=== PATIENT | male | born 1960 | race Caucasian/White ===

== ENCOUNTER → 2017-05-01 | Outpatient (CLI) | payer BC ==
[2017-05-01 09:56] LABS: Urine RBC None Seen /hpf (0 - 3)
[2017-05-01 10:18] LABS: Basophils # (auto) 0 uL; Basophils % (auto) 0.4 % (0.0-2.0); CONDITION Y; Eosinophils # (auto) 0.3 uL; Eosinophils % (auto) 2.8 % (0.0-7.0); Hematocrit 41.6 % (41.0-53.0); Hemoglobin 14.5 g/dL (13.5-17.5); Lymphocytes # (auto) 3.3 uL; Lymphocytes % (auto) 29.4 % (10.0-50.0); Mean Corpuscular Hemoglobin 30.2 pg (28.0-32.0); Mean Corpuscular Hgb Conc. 34.8 g/dL (32.0-36.0); Mean Corpuscular Volume 86.6 fL (80.0-100.0); Mean Platelet Volume 9.3 fL (7.4-10.4); Monocytes # (auto) 0.7 uL; Monocytes % (auto) 5.9 % (0.0-12.0); Neutrophils # (auto) 6.9 uL; Neutrophils % (auto) 61.5 % (37.0-80.0); Platelet Count (auto) 350 10^3/uL (140-450); Red Cell Distribution Width 14.4 % (11.6-16.0); White Blood Cell 11.3 10^3/uL (4.4-10.8)
[2017-05-01 10:25] LABS: Urine Bilirubin Negative (Negative); Urine Blood Negative /uL (Negative); Urine Color Yellow (Yellow); Urine Glucose Normal (Normal); Urine Ketone Negative (Negative); Urine Nitrite Negative (Negative); Urine Urobilinogen Normal (Negative)
[2017-05-01 10:33] LABS: Albumin 3.5 g/dL (3.4-5.0); BUN/Creatinine Ratio 28.7; Bilirubin, Total 0.3 mg/dL (0.2-1.0); Calcium 8.4 mg/dL (8.5-10.1); Potassium 3.8 mmol/L (3.5-5.1); Total Protein 7.2 g/dL (6.4-8.2)
== END | disposition home or self-care (01) ==
LOC: LAB 09:22
PROVIDERS: ATTEND Internal Medicine
DX: Z00.00 Encounter for general adult medical examination without abnormal findings (principal); E11.9 Type 2 diabetes mellitus without complications; I10 Essential (primary) hypertension; E55.9 Vitamin D deficiency, unspecified
CPT/HCPCS: 36415; 80053; 80061; 81001; 82043; 82306; 83036; 84443; 85025

== ENCOUNTER → 2017-07-25 | Outpatient (CLI) | payer BC ==
[2017-07-25 11:42] LABS: BUN/Creatinine Ratio 23.7; Calcium 9.1 mg/dL (8.5-10.1)
== END | disposition home or self-care (01) ==
LOC: LAB 10:07
PROVIDERS: ATTEND Internal Medicine
DX: E11.65 Type 2 diabetes mellitus with hyperglycemia (principal); E78.2 Mixed hyperlipidemia; E66.01 Morbid (severe) obesity due to excess calories
CPT/HCPCS: 36415; 80048; 83036; 84443

== ENCOUNTER 2019-07-03 14:47 | Emergency (ER) | payer BC, MEDICARE ==
[~2019-07-03] VITALS: Ht 170.2 cm; Wt 86.2 kg
[2019-07-03 15:39] LABS: Basophils # (auto) 0.1 uL; Basophils % (auto) 1.4 % (0.0-2.0); Eosinophils # (auto) 0.1 uL; Eosinophils % (auto) 1.5 % (0.0-7.0); Hematocrit 45.3 % (41.0-53.0); Hemoglobin 15.4 g/dL (13.5-17.5); Lymphocytes # (auto) 2.3 uL; Lymphocytes % (auto) 25.1 % (10.0-50.0); Mean Corpuscular Hemoglobin 32.3 pg (28.0-32.0); Mean Corpuscular Hgb Conc. 34.1 g/dL (32.0-36.0); Mean Corpuscular Volume 94.9 fL (80.0-100.0); Monocytes # (auto) 0.9 uL; Monocytes % (auto) 9.4 % (0.0-12.0); Neutrophils # (auto) 5.8 uL; Neutrophils % (auto) 62.6 % (37.0-80.0); Nucleated Red Blood Cells % 0.1 %; Platelet Count (auto) 313 10^3/uL (140-450); Red Blood Cells 4.77 10^6/uL (4.5-5.90); Red Cell Distribution Width 13.8 % (11.8-14.3); White Blood Cell 9.2 10^3/uL (4.4-10.8)
[2019-07-03 15:52] LABS: Acetaminophen < 2.0 ug/mL (10-30); Alanine Aminotransferase 67 U/L (16-61); Albumin 4.1 g/dL (3.4-5.0); Anion Gap 7 (5-15); Blood Alcohol < 3.0 mg/dL (0-5); Blood Urea Nitrogen 28 mg/dL (7-18); Calcium 8.9 mg/dL (8.5-10.1); Carbon Dioxide 28 mmol/L (21-32); Chloride 106 mmol/L (98-107); Glucose 114 mg/dL (74-106); Potassium 4.8 mmol/L (3.5-5.1); Salicylate < 1.7 mg/dL (2.8-20.0); Sodium 141 mmol/L (136-145)
[2019-07-03 15:55] LABS: Alkaline Phosphatase 93 U/L (45-117); Aspartate Aminotransferase 40 U/L (15-37); BUN/Creatinine Ratio 27.5; Bilirubin, Total 1.1 mg/dL (0.2-1.0); GFR African American 97 mL/min; GFR Non-African American 80 mL/min; Total Protein 7.3 g/dL (6.4-8.2)
[2019-07-03 16:00] VITALS: BP 154/86
[2019-07-03 16:00] LABS: Urine Bacteria NONE SEEN /hpf (None Seen); Urine Blood Negative /uL (Negative); Urine Mucus FEW (None Seen); Urine Specific Gravity 1.033 (1.001-1.035); Urine WBC 2 /hpf (0 - 3)
[2019-07-03 16:08] LABS: Alcohol, Urine < 3.0 mg/dL (0-5); Amphetamine Screen, Urine NEGATIVE (NEGATIVE); Barbiturate Scree,Urine NEGATIVE (NEGATIVE); Benzodiazephine Screen, Urine NEGATIVE (NEGATIVE); Cocaine Screen, Urine NEGATIVE (NEGATIVE); Opiate Scree,Urine NEGATIVE (NEGATIVE); Phencyclidine Screen, Urine NEGATIVE (NEGATIVE)
[2019-07-03 16:17] LABS: Cannabinoid Screen, Urine POSITIVE (NEGATIVE)
== END 2019-07-03 17:44 | disposition home or self-care (01) ==
LOC: ER 14:51
DX: R41.82 Altered mental status, unspecified (principal); F12.988 Cannabis use, unspecified with other cannabis-induced disorder; F19.90 Other psychoactive substance use, unspecified, uncomplicated
CPT/HCPCS: 36415; 70450; 71045; 80053; 80307; 80320; 80329; 81001; 84484; 85025; 93005

== ENCOUNTER 2019-07-07 17:39 | Inpatient (IN) | payer MEDICARE, BC ==
[~2019-07-07] VITALS: Ht 165.1 cm; Wt 84.2 kg
[2019-07-07 18:46] LABS: Basophils # (auto) 0.1 uL; Basophils % (auto) 0.7 % (0.0-2.0); Eosinophils # (auto) 0.1 uL; Eosinophils % (auto) 0.5 % (0.0-7.0); Hematocrit 43.5 % (41.0-53.0); Hemoglobin 14.7 g/dL (13.5-17.5); Lymphocytes # (auto) 1.5 uL; Lymphocytes % (auto) 12.8 % (10.0-50.0); Mean Corpuscular Hemoglobin 31.8 pg (28.0-32.0); Mean Corpuscular Hgb Conc. 33.7 g/dL (32.0-36.0); Mean Corpuscular Volume 94.3 fL (80.0-100.0); Monocytes # (auto) 1.1 uL; Monocytes % (auto) 9.5 % (0.0-12.0); Neutrophils # (auto) 9.1 uL; Neutrophils % (auto) 76.5 % (37.0-80.0); Platelet Count (auto) 350 10^3/uL (140-450); Red Blood Cells 4.61 10^6/uL (4.5-5.90); White Blood Cell 11.9 10^3/uL (4.4-10.8)
[2019-07-07 18:58] LABS: Alanine Aminotransferase 45 U/L (16-61); Albumin 3.8 g/dL (3.4-5.0); Anion Gap 7 (5-15); Aspartate Aminotransferase 27 U/L (15-37); BUN/Creatinine Ratio 35.4; Blood Alcohol < 3.0 mg/dL (0-5); Blood Urea Nitrogen 40 mg/dL (7-18); Calcium 8.9 mg/dL (8.5-10.1); Carbon Dioxide 26 mmol/L (21-32); Chloride 115 mmol/L (98-107); GFR African American 86 mL/min; GFR Non-African American 71 mL/min; Glucose 150 mg/dL (74-106); Potassium 3.8 mmol/L (3.5-5.1); Sodium 148 mmol/L (136-145)
[2019-07-07 19:03] LABS: Alkaline Phosphatase 99 U/L (45-117); Total Protein 7.3 g/dL (6.4-8.2)
[2019-07-07 19:52] LABS: Acetaminophen < 2.0 ug/mL (10-30); Salicylate < 1.7 mg/dL (2.8-20.0)
[2019-07-07] MEDS ORDERED: SODIUM CHLORIDE 0.9% 1,000 ML IV ONE ×2 (20:00→21:30)
[2019-07-07 21:26] LABS: Urine Bacteria FEW /hpf (None Seen); Urine Blood Negative /uL (Negative); Urine Mucus FEW (None Seen); Urine Specific Gravity 1.031 (1.001-1.035); Urine WBC 1 /hpf (0 - 3)
[2019-07-07 21:29] LABS: Alcohol, Urine < 3.0 mg/dL (0-5); Amphetamine Screen, Urine NEGATIVE (NEGATIVE); Barbiturate Scree,Urine NEGATIVE (NEGATIVE); Benzodiazephine Screen, Urine NEGATIVE (NEGATIVE); Cannabinoid Screen, Urine POSITIVE (NEGATIVE); Cocaine Screen, Urine NEGATIVE (NEGATIVE); Opiate Scree,Urine NEGATIVE (NEGATIVE); Phencyclidine Screen, Urine NEGATIVE (NEGATIVE)
[2019-07-08] MEDS ORDERED: TEMAZEPAM 15 MG CAP PO PRN (00:30)
[2019-07-08] MEDS ORDERED: ACETAMINOPHEN 325 MG TAB PO PRN (00:30)
[2019-07-08] MEDS ORDERED: ONDANSETRON HCL 4 MG/2 ML VIAL IV PRN (00:30)
[2019-07-08] MEDS ORDERED: DEXTROSE (50%) 50ML SYRG IV PRN (00:30)
[2019-07-08] MEDS ORDERED: cloNIDine HCL 0.1 MG TAB PO PRN (00:30)
[2019-07-08] MEDS ORDERED: cefTRIAXone 1GM/50ML D5W 50 ML IV ONE (02:00)
[2019-07-08] MEDS: LORazepam 0.5 MG TAB PO PRN ×2 (05:13→11:42)
[2019-07-08] MEDS: SOD CHL 0.45% 1,000 ML IV SCH ×2 (05:16→17:36)
[2019-07-08] MEDS ORDERED: ACCU-CHEK COMFORT CURVE STRIP VI SCH (06:00)
[2019-07-08] MEDS ORDERED: InsuLIN REG 1unit/0.01ml Soln (100units/ml) SC SCH (06:00)
[2019-07-08] MEDS ORDERED: LORazepam 2MG/ML-1ML VIAL IV PRN ×2 (08:45→13:00)
[2019-07-08 08:56] VITALS: BP 157/85
[2019-07-08] MEDS: FAMOTIDINE 20 MG TAB PO SCH ×2 (11:43→22:10)
[2019-07-08] MEDS: FOLIC ACID 1 MG, MULTIPLE VITAMIN 10 ML, MAGNESIUM SULF SDV 50% 8 MEQ, THIAMINE INJ 100... INJ SCH ×5 (11:45)
[2019-07-08] MEDS: chlordiazePOXIDE HCL 25 MG CAP PO SCH ×3 (12:00→23:45)
[2019-07-08] MEDS ORDERED: LORazepam 2MG/ML-1ML VIAL IV ONE (13:00)
[2019-07-08 14:58] VITALS: BP 132/79
[2019-07-08 17:00] VITALS: BP 109/72
--- NOTE | 2019-07-08 19:20 | NUR ---
Opening Shift Note Assumed care of patient, he is resting in bed. Sitter is at bedside for safety. No S/S of distress/SOB or pain. Lopez is in place and hung below bladder, it is patent and draining. Multi vitamin bag is currently infusing to the LFA 20g IV. Call light is within reach, side rails up x2, bed is in lowest position. Instructed on POC and to call for assist PRN. Will continue to monitor for changes Q1hr and PRN.
[2019-07-08 22:00] VITALS: BP 101/66
--- NOTE | 2019-07-08 23:40 | NUR ---
Patient is requesting his blood sugar to be checked stating he starts to stutter when it goes low and he is stuttering. Accucheck reading was 115. Patient responded saying, "Oh yeah, that's what I thought it was going to be. Last night it was 0 when I checked it so I started eating everything I knew had sugar in it. " He is A/O x2 (alert to self and place) and has no complaints of pain, SOB, or distress. Sitter is at bedside for safety, will continue to monitor.
[2019-07-09] MEDS ORDERED: cefTRIAXone 1GM/50ML D5W 50 ML IV SCH
[2019-07-09] MEDS: chlordiazePOXIDE HCL 25 MG CAP PO SCH (05:59)
[2019-07-09 06:11] VITALS: BP 125/71
[2019-07-09 06:15] LABS: Basophils # (auto) 0.1 uL; Basophils % (auto) 0.7 % (0.0-2.0); Eosinophils # (auto) 0.3 uL; Eosinophils % (auto) 2.8 % (0.0-7.0); Hematocrit 41.6 % (41.0-53.0); Hemoglobin 14.4 g/dL (13.5-17.5); Lymphocytes # (auto) 2.7 uL; Lymphocytes % (auto) 24.4 % (10.0-50.0); Mean Corpuscular Hemoglobin 32.2 pg (28.0-32.0); Mean Corpuscular Hgb Conc. 34.5 g/dL (32.0-36.0); Mean Corpuscular Volume 93.3 fL (80.0-100.0); Monocytes # (auto) 1.2 uL; Monocytes % (auto) 10.8 % (0.0-12.0); Neutrophils # (auto) 6.8 uL; Neutrophils % (auto) 61.3 % (37.0-80.0); Nucleated Red Blood Cells % 0.1 %; Platelet Count (auto) 331 10^3/uL (140-450); Red Blood Cells 4.46 10^6/uL (4.5-5.90); Red Cell Distribution Width 13.4 % (11.8-14.3); White Blood Cell 11.1 10^3/uL (4.4-10.8)
[2019-07-09 06:40] LABS: BUN/Creatinine Ratio 32.5; Calcium 8.4 mg/dL (8.5-10.1); Potassium 3.3 mmol/L (3.5-5.1)
[2019-07-09 06:43] LABS: Bilirubin, Total 0.8 mg/dL (0.2-1.0); Total Protein 6.4 g/dL (6.4-8.2)
[2019-07-09] MEDS ORDERED: COLCPOW2 PO (08:47)
[2019-07-09 09:00] VITALS: BP 119/70
[2019-07-09] MEDS: SOD CHL 0.45% 1,000 ML IV SCH (09:04)
[2019-07-09] MEDS: FAMOTIDINE 20 MG TAB PO SCH (10:37)
[2019-07-09] MEDS: FOLIC ACID 1 MG, MULTIPLE VITAMIN 10 ML, MAGNESIUM SULF SDV 50% 8 MEQ, THIAMINE INJ 100... INJ SCH ×5 (11:38)
--- NOTE | 2019-07-09 12:17 | NUR ---
PATIENT SISTER AT BEDSIDE TO TAKE PATIENT HOME. IV REMOVED DC FLOREZ CATHETER REMOVED. NO SIGNS OF DISTRESS.
--- NOTE | 2019-07-09 13:38 | NUR ---
assessment Patient has been discharged home prior to assessment. Addendum: 07/09/19 at 1342 by Jailene ENAMORADO Amended: Links added.
== END 2019-07-09 12:15 | disposition home or self-care (01) | DRG 897 ==
LOC: ER 17:39 → OVERFLOW 17:40 → CENTRAL 07-08 08:46
PROVIDERS: ADMIT Nurse Practitioner; ATTEND Family Medicine
DX: F10.229 Alcohol dependence with intoxication, unspecified (principal); E87.0 Hyperosmolality and hypernatremia; F10.239 Alcohol dependence with withdrawal, unspecified; E11.9 Type 2 diabetes mellitus without complications; D72.829 Elevated white blood cell count, unspecified; I10 Essential (primary) hypertension; E86.0 Dehydration; F32.9 Major depressive disorder, single episode, unspecified; M10.9 Gout, unspecified; F12.90 Cannabis use, unspecified, uncomplicated; Z98.84 Bariatric surgery status; G31.2 Degeneration of nervous system due to alcohol
CPT/HCPCS: 36415; 70450; 71045; 73110; 80053; 80307; 80320; 80329; 81001; 82140; 82962; 83605; 83880; 84484; 85025; 87040; 96361; 96365; 96375; G0378; J0696